=== PATIENT | male | born 1965 | race Caucasian/White ===

== ENCOUNTER 2017-11-15 07:08 | Day surgery (SDC) | payer OTHER ==
[2017-11-14 16:01] VITALS: BMI 37.2
--- NOTE | 2017-11-15 05:35 | HP ---
SHORT-STAY HISTORY AND PHYSICAL DATE OF ADMISSION: 11/15/2017 HISTORY OF PRESENT ILLNESS: This is a 52-year-old male who comes for colonoscopy for colon cancer sc reening. The patient has no specific GI symptoms. There is no family history of colon cancer. ALLERGIES: SULFA. SOCIAL HISTORY: The patient does not smoke, but drinks alcohol socially. MEDICAL ILLNESSES: 1. Hypertension. 2. Hyperlipidemia. 3. Obesity. 4. Sleep apnea. PHYSICAL EXAMINATION: VITAL SIGNS: Pulse is 70, blood pressure 140/70. HEENT: Conjunctivae clear. CARDIOVASCULAR: First and second heart sounds normal. LUNGS: Clear to auscultation. ABDOMEN: Soft to palpate. No organomegaly. No tenderness. No masses. ADMITTING DIAGNOSIS: A 52-year-old male who comes for colonoscopy for colon cancer screening.
--- NOTE | 2017-11-15 19:20 | OP ---
DATE OF PROCEDURE: 11/15/2017 PROCEDURE: Colonoscopy with polypectomy. PREOPERATIVE DIAGNOSIS: A 52-year-old male undergoing colonoscopy for colon cancer screening. POSTOPERATIVE DIAGNOSES: 1. Sigmoid diverticular disease. 2. Sessile sigmoid polyps x2, polypectomy. 3. Hemorrhoids. 4. Retained stools predominantly in the right colon. OPERATIVE PROCEDURE: Colonoscopy with polypectomy. DESCRIPTION OF PROCEDURE: The patient was placed on his left lateral position and was given sedation by the Anesthesia Department. A rectal exam was done before the scope was advanced into the rectum. No lesion felt on rectal exam. A [employer]ax video colonoscope was introduced into the rectum and advanced all the way into the cecum. The patient did have some retained fecal matter coating of the mucosa. The mucosa appeared normal. Water was irrigated and washed out. The appendiceal orifice, ileocecal valve, cecum, no pathology seen. The ascending colon, hepatic flexure, transverse colon, splenic flexure, and descending colon, no pathology seen. The sigmoid colon showed scattered diverticular disease. The sessile polyp over the high nsigmoid colon removed with biopsy forceps. Another sessile polyp over the lower sigmoid area. Both were removed with cautery with good hemostasis. Retroflexion of the scope in the rectum showed hemorrhoids. DISCHARGE PLANNING: This is a 52-year-old male who came for a colonoscopy for colon cancer screening. He underwent colonoscopy with polypectomy x2. DISCHARGE RECOMMENDATIONS: 1. The patient advised to call me if he develops abdominal pain , rectal bleeding. 2. High-fiber diet. 3. Repeat colonoscopy in 5 years. KEMAL
== END 2017-11-15 10:31 | disposition home or self-care (01) ==
LOC: SDC 07:08
PROVIDERS: ATTEND Internal Medicine Gastroenterology
PROC: 0DBN8ZX Excision of Sigmoid Colon, Via Natural or Artificial Opening Endoscopic, Diagnostic (ICD-10-PCS; principal; 2017-11-15)
DX: Z12.11 Encounter for screening for malignant neoplasm of colon (principal); K63.5 Polyp of colon; K57.30 Diverticulosis of large intestine without perforation or abscess without bleeding; K64.9 Unspecified hemorrhoids; G47.30 Sleep apnea, unspecified; I10 Essential (primary) hypertension; E78.5 Hyperlipidemia, unspecified; E66.9 Obesity, unspecified; Z79.82 Long term (current) use of aspirin; Z79.52 Long term (current) use of systemic steroids; Z79.899 Other long term (current) drug therapy; Z88.2 Allergy status to sulfonamides; Z68.37 Body mass index [BMI] 37.0-37.9, adult
CPT/HCPCS: 88305